=== PATIENT | male | born 2000 | race Caucasian/White ===

== ENCOUNTER 2021-01-03 03:49 | Emergency (ER) | payer OTHER, SELFPAY ==
[2021-01-03] MEDS ORDERED: Acetaminophen 325 MG TAB ONE (04:14)
== END 2021-01-03 04:32 | disposition home or self-care (01) ==
LOC: CSHERS 03:49
DX: S60.221A Contusion of right hand, initial encounter (principal); F17.220 Nicotine dependence, chewing tobacco, uncomplicated; W22.8XXA Striking against or struck by other objects, initial encounter